=== PATIENT | female | born 2000 | race Two or more races ===

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

== ENCOUNTER 2021-05-11 20:43 | Emergency (ER) | payer OTHER ==
[~2021-05-11] VITALS: Ht 162.6 cm; Wt 79.4 kg
[2021-05-11 23:13] VITALS: BP 126/71
== END 2021-05-11 23:15 | disposition home or self-care (01) ==
LOC: ER 21:01
DX: M79.601 Pain in right arm (principal); M25.562 Pain in left knee; M25.561 Pain in right knee; V43.52XA Car driver injured in collision with other type car in traffic accident, initial encounter; Y92.488 Other paved roadways as the place of occurrence of the external cause
CPT/HCPCS: 81025; 99283